=== PATIENT | female | born 2000 | race Caucasian/White ===

== ENCOUNTER 2023-03-17 18:29 | Emergency (ER) | payer BC, SELFPAY ==
[~2023-03-17 18:29] MED LIST: Iopamidol-370 76% 500 ML MDV (1 ML CHARGE) ONE
[2023-03-17 19:46] LABS: Bilirubin Negative (Negative); Blood, Urine 2+ (Negative); CAUTI Indications for Culture Pelvic or flank pain; Clarity Turbid (Clear); Glucose, Urine (Dipstick) Normal (Negative); Ketone, Urine 150 mg/dL (Negative); Leukocyte 500 Leu/uL (Negative); Nitrite Negative (Negative); Protein, Urine (Dipstick) 50 mg/dL (Neg-Trace); RBC/HPF 0-3 HPF (0-3); Specific Gravity, Urine 1.025 (1.002-1.036); Urobilinogen Normal mg/dL (Less than 2)
[2023-03-17 19:47] LABS: Bacteria/HPF 1+ HPF (None Seen); Pregnancy Test - Urine (BHCG) Negative (Negative); Pregu Control Background? CLEAR/WHITE (CLR/WHITE); Pregu Control Bar Appear? YES (CONTROL BAR); Specific Gravity 1.025 (1.002-1.036)
[2023-03-17 19:49] LABS: Urine Culture Reflex No No
[2023-03-17 19:57] LABS: #Eosinphils 0.2 thou/uL (0.0-0.7); #Monocytes 0.8 thou/uL (0.11-0.59); #Neutrophils 5.4 thou/uL (1.40-6.50); %Basophils 0.3 % (0.0-1.0); %Eosinophils 2.1 % (0.0-10.0); %Lymphocytes 29.2 % (28.0-48.0); %Monocytes 8.4 % (0.0-4.0); %Neutrophils 59.8 % (31.0-61.0); Hematocrit 49.1 % (36.0-47.0); Mean Corpuscular HGB CONC 34.6 g/dL (32.0-36.0); Mean Corpuscular Hemoglobin 28.6 pg (25.0-35.0); Mean Corpuscular Volume 82.7 fl (78.0-98.0); Mean Platelet Volume 8.8 fL (7.4-10.4); Platelet Count 283 10x3/uL (130-400); RBC Distribution Width 12.2 % (11.5-14.5); Red Blood Cell (RBC) Count 5.94 mill/uL (4.00-5.20); White Blood Cell (WBC) Count 9.1 10x3/uL (4.8-10.8)
[2023-03-17 20:24] LABS: ALT (SGPT) 19 U/L (8-55); AST (SGOT) 17 U/L (5-34); Albumin 5.3 g/dL (3.5-5.0); Alkaline Phosphatase 75 U/L (40-100); Anion Gap 19 mmol/L (10-20); BUN (Urea Nitrogen) 9 mg/dL (7.0-18.7); Bilirubin, Total 0.5 mg/dL (0.2-1.2); Calc. Creatinine Clearance 0 mL/min (70-130); Calcium 10.2 mg/dL (7.8-10.44); Carbon Dioxide 20 mmol/L (22-29); Chloride 99 mmol/L (98-107); Estimated GFR 99; Glucose 90 mg/dL (70-105); Lipase 103 U/L (8-78); Potassium 3.3 mmol/L (3.5-5.1); Protein, Total 8.3 g/dL (6.0-8.3); Sodium 135 mmol/L (136-145)
[2023-03-17] MEDS ORDERED: Acetaminophen 325 MG TAB ONE (21:23)
[2023-03-17] MEDS ORDERED: Ondansetron PF 4 MG/2 ML Vial ONE (21:23)
[2023-03-17] MEDS ORDERED: Ketorolac Tromethamine 30 MG/ML VIAL ONE (21:23)
== END 2023-03-17 22:05 | disposition home or self-care (01) ==
LOC: ERS 18:29
DX: R10.84 Generalized abdominal pain (principal); R11.2 Nausea with vomiting, unspecified; Z20.822 Contact with and (suspected) exposure to COVID-19
CPT/HCPCS: 74177; 80053; 81001; 81025; 83690; 85025; 87635; 96361; 96374; 96375; J1885; J2405

== ENCOUNTER 2023-04-23 22:16 | Emergency (ER) | payer BC ==
[2023-04-23] MEDS ORDERED: Ibuprofen 200 MG TAB ONE (22:52)
[2023-04-23] MEDS ORDERED: Acetaminophen 500 MG TAB ONE (22:52)
[2023-04-23 23:21] LABS: SARS-CoV-2 NAA Rapid Test Not Detected (NotDetected)
== END 2023-04-23 23:46 | disposition home or self-care (01) ==
LOC: ERS 22:16
DX: J10.1 Influenza due to other identified influenza virus with other respiratory manifestations (principal); Z20.822 Contact with and (suspected) exposure to COVID-19
CPT/HCPCS: 99284

== ENCOUNTER 2023-04-26 12:51 | Emergency (ER) | payer BC | END 2023-04-26 14:38 | disposition home or self-care (01) | LOC: ERS 12:51 | DX: J11.1 Influenza due to unidentified influenza virus with other respiratory manifestations (principal) | CPT/HCPCS: 99283 ==

== ENCOUNTER 2023-07-12 15:12 | Emergency (ER) | payer BC ==
[2023-07-12 17:08] LABS: #Eosinphils 0.1 thou/uL (0.0-0.7); #Monocytes 0.6 thou/uL (0.11-0.59); #Neutrophils 3.2 thou/uL (1.40-6.50); %Basophils 0.6 % (0.0-1.0); %Eosinophils 1.7 % (0.0-10.0); %Neutrophils 48.4 % (31.0-61.0); Hematocrit 42.5 % (36.0-47.0); Hemoglobin 14.6 g/dL (12.0-16.0); Mean Corpuscular HGB CONC 34.4 g/dL (32.0-36.0); Mean Corpuscular Hemoglobin 29.5 pg (25.0-35.0); Mean Corpuscular Volume 85.9 fl (78.0-98.0); Mean Platelet Volume 8.9 fL (7.4-10.4); Platelet Count 290 10x3/uL (130-400); Red Blood Cell (RBC) Count 4.95 mill/uL (4.00-5.20); White Blood Cell (WBC) Count 6.7 10x3/uL (4.8-10.8)
[2023-07-12 17:29] LABS: ALT (SGPT) 17 U/L (8-55); AST (SGOT) 19 U/L (5-34); Albumin 4.7 g/dL (3.5-5.0); Alkaline Phosphatase 77 U/L (40-100); Anion Gap 16 mmol/L (10-20); BUN (Urea Nitrogen) 15 mg/dL (7.0-18.7); Bilirubin, Total 0.6 mg/dL (0.2-1.2); Calc. Creatinine Clearance 0 mL/min (70-130); Calcium 9.7 mg/dL (7.8-10.44); Carbon Dioxide 23 mmol/L (22-29); Chloride 103 mmol/L (98-107); Estimated GFR 95; Globulin 2.6 g/dL (2.4-3.5); Glucose 90 mg/dL (70-105); Lipase 36 U/L (8-78); Potassium 3.9 mmol/L (3.5-5.1); Protein, Total 7.3 g/dL (6.0-8.3); Sodium 138 mmol/L (136-145)
[2023-07-12 17:31] LABS: Troponin I Less than 0.010 ng/mL (< 0.028)
== END 2023-07-12 19:42 | disposition home or self-care (01) ==
LOC: ERS 15:12
DX: J98.2 Interstitial emphysema (principal); Z55.6 Problems related to health literacy
CPT/HCPCS: 70491; 71045; 71275; 80053; 83690; 84484; 85025; 87081; 87430; 93005